=== PATIENT | male | born 1950 ===

== ENCOUNTER 2024-11-08 12:18 | Day surgery (SDC) | payer OTHER ==
[~2024-11-08] VITALS: Ht 170.2 cm; Wt 77.1 kg
[2024-11-08 08:35] VITALS: BP 160/90
[2024-11-08 08:54] LABS: BASO % 0.5 % (0.1-1.2); EOS # 0.11 (0.04-0.54); EOS % 1.9 % (0.7-7.0); HEMATOCRIT 31.6 % (40.1-51.0); HEMOGLOBIN 10.9 g/dL (13.7-17.5); LYMPH # 1.09 (1.18-3.74); LYMPH % 18.8 % (19.3-53.1); MEAN CORPUSCULAR HEMOGLOBIN 27.9 pg (25.6-32.2); MONO # 0.48 (0.24-0.82); MONO % 8.3 % (4.7-12.5); NEUT # 4.07 (1.56-6.13); NEUT % 70.2 % (34.0-71.1); PLATELET COUNT 197 K/uL (163-369); RED BLOOD COUNT 3.91 M/uL (4.63-6.08); RED CELL DISTRIBUTION WIDTH 12.8 % (11.6-14.4)
[2024-11-08 09:12] LABS: ALBUMIN 3.5 gm/dL (3.4-5.0); BILIRUBIN TOTAL 0.3 mg/dL (0.3-1.2); CALCIUM 10.2 mg/dL (8.5-10.1); CREATININE SERUM 1.12 mg/dL (0.70-1.30); GFR 64.26; GLOBULINA 3.6 G/DL (2.4-3.5); POTASSIUM 5.07 mEq/L (3.5-5.1); TOTAL PROTEIN 7.1 gm/dL (6.4-8.2)
[2024-11-08 09:21] LABS: INR 0.99; PARTIAL THROMBOPLASTIN TIME 27.1 SECONDS (22.0-34.0); PROTHROMBIN TIME 10.8 SECONDS (9.0-11.5)
[~2024-11-08 12:18] MED LIST: ADULT LOW DOSE81 M1; CLONAZEPAM 1 MG; GRALISE600 MG; LOSARTAN POTAS100 MG; METFORMIN HCL1000 M2; METOPROLOL SUCC50 MG; PLAVIX75 MG
[2024-11-08] MEDS ORDERED: hydrALAZINE HCL 20 MG VIAL ONE (17:38)
== END 2024-11-08 20:30 | disposition home or self-care (01) ==
LOC: CIR.AMB 12:18
PROVIDERS: ATTEND Internal Medicine
DX: D37.6 Neoplasm of uncertain behavior of liver, gallbladder and bile ducts (principal); R93.3 Abnormal findings on diagnostic imaging of other parts of digestive tract; K86.9 Disease of pancreas, unspecified

== ENCOUNTER 2024-11-22 06:45 | Day surgery (SDC) | payer OTHER ==
[2024-11-22] MEDS ORDERED: ENALAPRILAT DIHYDRATE 1.25 MG/ML VIAL IV ONE ×2 (13:30→14:00)
[2024-11-22] MEDS ORDERED: hydrALAZINE HCL 20 MG VIAL IV ONE (14:30)
== END 2024-11-22 15:10 | disposition home or self-care (01) ==
LOC: CIR.AMB 06:45
PROVIDERS: ATTEND Internal Medicine
DX: D37.8 Neoplasm of uncertain behavior of other specified digestive organs (principal); K86.89 Other specified diseases of pancreas; R93.3 Abnormal findings on diagnostic imaging of other parts of digestive tract